=== PATIENT | female | born 1955 | race Caucasian/White ===

== ENCOUNTER → 2020-06-26 | Outpatient (CLI) | payer OTHER ==
[~2020-06-26] MED LIST: ASPIRIN325 PO; ATORVASTATIN CA40 MG PO; EFFIENT10 MG PO; LEVOTHYROXINE0.05 MG PO; LISINOPRIL-HCT1 EAC2 PO; LISINOPRIL20 MG PO; LOPRESSOR100 M1 PO; METFORMIN HCL500 MG PO; NICOTINE TRANSD21 M1
== END ==
LOC: SJCVCIMAG 08:26
PROVIDERS: ATTEND Internal Medicine
DX: I35.8 Other nonrheumatic aortic valve disorders (principal); I25.10 Atherosclerotic heart disease of native coronary artery without angina pectoris; E11.9 Type 2 diabetes mellitus without complications; I10 Essential (primary) hypertension; I25.2 Old myocardial infarction; F17.200 Nicotine dependence, unspecified, uncomplicated; Z79.899 Other long term (current) drug therapy

== ENCOUNTER → 2020-12-21 | Outpatient (CLI) | payer OTHER ==
[~2020-12-21] MED LIST changes: +CLOPIDOGREL75 MG PO; +FAMOTIDINE 20 M20 MG PO; +JARDIANCE10 MG PO; +LANTUS SOL100 UNIT/1 SUBQ; +LEVOTHYROXINE125 MCG PO; +LIPITOR 20 MG T20 M1 PO; +NEURONTIN 300M300 M2 PO; +NORVASC5 MG PO; +PROAIR HFA8.5 GM INH; +SPIRIVA RESPIMAT4 GM INH; +VITAMIN D350 MC3 PO
== END ==
LOC: LAB 07:43
PROVIDERS: ATTEND Surgery
DX: Z01.812 Encounter for preprocedural laboratory examination (principal); Z20.822 Contact with and (suspected) exposure to COVID-19

== ENCOUNTER 2020-12-25 06:52 | Day surgery (SDC) | payer OTHER ==
[~2020-12-25] VITALS: Ht 160 cm; Wt 87.1 kg
[2020-12-25 07:31] LABS: HEMATOCRIT 41.1 % (37.0-47.0); HEMOGLOBIN 13.8 gm/dL (12.0-15.0); MCH 29.8 pg (26.0-34.0); MCHC 33.5 g/dL (28.0-37.0); MCV 88.9 fL (80.0-100.0); RBC 4.62 mil/uL (4.20-5.00); RDW 13.3 % (10.5-14.5); WBC 11.4 thou/uL (4.0-11.0)
[2020-12-25 07:40] VITALS: BP 99/66
[2020-12-25 07:43] LABS: CALCIUM 9.7 mg/dL (8.5-10.1); CREATININE 1.6 mg/dL (0.6-1.0); POTASSIUM 3.8 mmol/L (3.5-5.1)
[2020-12-25 07:49] LABS: ALBUMIN 3.7 g/dL (3.4-5.0); TOTAL BILIRUBIN 0.5 mg/dL (0.2-1.0); TOTAL PROTEIN 8.4 g/dL (6.4-8.2)
[2020-12-25] MEDS ORDERED: HYDROCODON-ACE1 EAC7 PO (10:24)
[2020-12-25] MEDS ORDERED: COLACE 100 MG100 MG PO (10:24)
[2020-12-25] MEDS ORDERED: MIRALAX17 GM PO (10:25)
--- NOTE | 2020-12-25 12:59 | EKG ---
[address] [place] [address] ELECTROCARDIOGRAM REPORT Name: MIKAYLA PECK ROGER Room #: 150-2 [facility].R.#: [id number] Admission: 12/25/20 Attend Phys: Sumanth Cherry MD Discharge: Date of : 53 Report #: [id number] [facility] Test Date: 2020-12-25 Test Time: 07:59:09 Pat Name: MIKAYLA PECK Department: Room: 150 2 Gender: F Roller: VY : 1955 Requested By: Sumanth Cherry Order Number: [id number] MD: Gerry Romo Measurements Intervals [place] Rate: 75 P: 7 MN: 176 QRS: -19 QRSD: 108 T: 83 QT: 414 QTc: 463 Interpretive Statements Sinus rhythm Low voltage, precordial leads RSR' in V1 or V2, probably normal variant Probable LVH with secondary repol abnrm Compared to ECG 03/27/2016 07:29:31 Electronically Signed On 12-25-2020 12:59:37 PHERESIS NURSE by Gerry Romo [email or web address] <ELECTRONICALLY SIGNED> By: Gerry Romo MD 12/25/20 [id number] Gerry Romo MD /HOSSEIN
--- NOTE | 2020-12-25 15:45 | NUR ---
patient comes to floor from PACU at 1405 with all belongings. admission complete. patient education completed. call light education provided.
--- NOTE | 2020-12-25 15:47 | NUR ---
ASSESSMENT: CM REVIEWED CHART AND SPOKE WITH PATIENT. PT IS ALERT AND ORIENTED X4. PT REPORTS SHE LIVES IN AN APT ALONE. PT REPORTS BEING FULLY INDEPENDENT PRIOR TO ADMISSION BUT STATES SHE HAS A CANE AT HOME IF NEEDED THAT SHE NORMALLY DOES NOT USE. PT REPORT SNO STEPS INTO HER APT. PT REPORTS THAT SHE HAS A BROTHER WHO HELPS ASSIST HER NEEDED AND CAN PICK HER UP ONCE SHE LEAVES. PT REPORT SHE HAS NO HX OF HH OR SNF. PT DOES NOT ANTICIPATE HAVING ANY NEEDS FROM CM PRIOR TO DISCHARGE. PT IS S/P [employer]AVE. CM WILL CONTINUE TO FOLLOW TO ASSIST NEEDED.
[2020-12-25 16:34] VITALS: BP 129/75
--- NOTE | 2020-12-25 18:34 | NUR ---
patient arrives at 1405 from surgery. patient refuses pain medication when offered for post operative pain. family at bedside during visint hours. no complaints of nausea. voids per bathroom. 1 person assist. ambulates well with staff.
[2020-12-25 19:50] VITALS: BP 113/53
--- NOTE | 2020-12-26 00:30 | NUR ---
ASSUMED PT CARE AT 1900.PT C/O PAIN ON HER ABD,MANAGED WITH MED.PT HAS 4 LAP SITES COVERED WITH DDERMABOND.SITE C/D/I.SCD IN PLACE ON HER BLE.PT ON 2L/NC.PT RESTING ON HER BED AT THIS TIME.CALL LIGHT WITHIN REACH.
[2020-12-26 03:50] VITALS: BP 100/49
[2020-12-26 04:28] LABS: HEMATOCRIT 34.8 % (37.0-47.0); MCHC 33.4 g/dL (28.0-37.0); MCV 89.9 fL (80.0-100.0); RBC 3.87 mil/uL (4.20-5.00); RDW 13.9 % (10.5-14.5); WBC 12.1 thou/uL (4.0-11.0)
[2020-12-26 04:34] LABS: HEMOGLOBIN 11.6 gm/dL (12.0-15.0)
[2020-12-26 05:13] LABS: CALCIUM 8.9 mg/dL (8.5-10.1); CREATININE 1.4 mg/dL (0.6-1.0); PHOSPHORUS 4.1 mg/dL (2.5-4.9); POTASSIUM 3.4 mmol/L (3.5-5.1)
[2020-12-26 07:35] VITALS: BP 100/64
[2020-12-26 15:27] VITALS: BP 76/44; BP 90/64
[2020-12-26 16:00] VITALS: BP 96/60
--- NOTE | 2020-12-26 18:30 | NUR ---
PT ASSESSED AT START OF SHIFT. C/O SOME ABD PAINS BUT FELT BETTER AFTER NORCO. TAKING SM AMTS PO THIS AM. PT SEEN BY DR. GARDUNO AND PLANS FOR PT DISCHARGE. APPROX 1530 VS TAKEN AND PT NOTED TO BE VERY LETHARGIC W/ . ACCUCK TAKEN AND WAS 125 FROM 292 AT LUNCHTIME. 17 UNITS HUMALOG GIVEN AT THE TIME AND PT WAS EATING LUNCH. PT NOT GOING HOME AFTER ACCUCHECK SO HIGH AND DR. CASTRO CONSULTED FOR DIABETIC MGMT. ORDERS RECEIVED. IV 500ML BOLUS GIVEN. PT MONITORED CLOSELY AND GIVEN PO FLUIDS AND SOFT FOODS TO STABILIZE FALLING GLUCOSE. DOCTORS KEPT UPDATED. PT DOING BETTER AT PRESENT TIME.
[2020-12-26 20:35] VITALS: BP 109/61
--- NOTE | 2020-12-27 05:04 | NUR ---
PT AMBULATING TO BATHROOM WITH STANDBY ASSIST AND IS TOLERATING FAIR. X STRENGTH TYLENOL PROVIDING PAIN RELIEF. DENIES NAUSEA. RESTING COMFORTABLY. NO NEEDS VOICED. CALL LIGHT WITHIN REACH. FREQUENT OBSERVATION.
[2020-12-27 05:12] LABS: HEMATOCRIT 31.9 % (37.0-47.0); HEMOGLOBIN 10.7 gm/dL (12.0-15.0); MCH 30.2 pg (26.0-34.0); MCHC 33.6 g/dL (28.0-37.0); MCV 90.1 fL (80.0-100.0); RBC 3.54 mil/uL (4.20-5.00); RDW 13.8 % (10.5-14.5); WBC 8.2 thou/uL (4.0-11.0)
[2020-12-27 05:23] LABS: CALCIUM 8.3 mg/dL (8.5-10.1); CREATININE 1.3 mg/dL (0.6-1.0); POTASSIUM 3.3 mmol/L (3.5-5.1)
[2020-12-27 07:45] VITALS: BP 99/60
[2020-12-27 10:21] LABS: URINE BILIRUBIN NEGATIVE (Negative); URINE BLOOD NEGATIVE (Negative); URINE CLARITY CLEAR; URINE COLOR YELLOW; URINE GLUCOSE-RANDOM* 3+ (Negative); URINE KETONES NEGATIVE (Negative); URINE NITRITE-REFLEX NEGATIVE (Negative); URINE PROTEIN (DIPSTICK) NEGATIVE (Negative); URINE SPECIFIC GRAVITY 1.015 (1.005-1.035); URINE UROBILINOGEN 0.2 E.U./dl (0.2-1.0)
[2020-12-27 10:27] LABS: URINE LEUKOCYTES-REFLEX 1+ (Negative)
[2020-12-27 12:48] LABS: SQUAMOUS >10 Many /LPF (0-3)
[2020-12-27] MEDS ORDERED: LANTUS SUBQ (12:48)
[2020-12-27] MEDS ORDERED: GLIPIZIDE5 MG PO (12:48)
[2020-12-27 12:49] LABS: CASTS None Seen /LPF (None Seen); URINE RBC 0-2 Rare /HPF (0-2); URINE WBC-REFLEX 6-15 Few /HPF (0-5)
[2020-12-27 12:50] LABS: BACTERIA-REFLEX 1-9 Few /HPF (None Seen); CRYSTALS None Seen /LPF (None Seen)
[2020-12-27 13:06] VITALS: BP 99/60
--- NOTE | 2020-12-27 14:14 | NUR ---
PT CARE ASSUMED AT 0700. A&Ox4. ACHS WITH HISTORY OF NONCOMPLIANCE. UA COLLECTED. NO N/V. LAPSITES x4 DRY&INTACT. iV PATENT WITH NO REDNESS OR EDEMA, FLUIDS INFUSING. DISCHARGE INSTRUCTIONS GIVEN. WITH NO FURTHER QUESTIONS. INDEPENDENTLY UP IN THE ROOM. CALL LIGHT IN REACH.
--- NOTE | 2020-12-28 15:07 | PATH ---
[facility] [address] [place] [address] PATHOLOGY RPT PROCEDURE Name: BELL WILLETT Room #: DEP [facility] M.R.#: [id number] Admission: 12/25/20 Date of : 53 Discharge: 12/27/20 Report #: [id number] Path Case #: [id number] [facility] Accession Number: [id number] . 01 Material submitted: . gallbladder - GALLBLADDER . 01 Clinical history: . ABDOMINAL PAIN, CHOLELITHIASIS . 02 Diagnosis: Gallbladder "gallbladder, cholecystectomy": - Chronic cholecystitis with cholelithiasis. (LATONYA:ra; 12/28/2020) MBR 12/28/2020 1322 Local . 02 Electronically signed: . Kenneth Doe MD, Pathologist NPI- [id number] . 01 Gross description: . Received in formalin labeled "Willett, Ebll, gallbladder" is intact cholecystectomy specimen measuring 8.9 x 3.4 x 3.4 cm. The serosa is smooth, yellow-green and glistening with a roughened hepatic bed. The specimen is opened to reveal velvety, green-brown mucosa without polyps or masses. The average wall thickness is 0.2 cm. There are multiple irregular green-black calculi measuring in aggregate 4.3 x 2.1 x 0.9 cm. There is a possible lymph node measuring 0.4 x 0.3 x 0.3 cm. Senior Instructional Designer sections of the fundus, body, possible lymph node and the cystic duct margin are submitted in A1. ([facility]; 12/27/2020) GZA/GZA 12/28/2020 1321 Local . 02 Pathologist provided ICD-10: K80.10 . 02 CPT . 963893 Specimen Comment: Report sent to / Performed at: [facility] [address] [place] [address] [address], [place], [place] [id number] MD Kenneth Doe MD Phone: [phone] Performed at: [address] [id number] MD Tanika Birmingham MD Phone: [phone]
== END 2020-12-27 14:20 | disposition home or self-care (01) ==
LOC: OR 06:52 → TBA 06:52 → OR 09:50 → 4S 14:16 → OR 12-27 14:20
PROVIDERS: Internal Medicine; ATTEND Surgery
DX: K80.10 Calculus of gallbladder with chronic cholecystitis without obstruction (principal); K85.90 Acute pancreatitis without necrosis or infection, unspecified; R10.9 Unspecified abdominal pain; I10 Essential (primary) hypertension; E11.9 Type 2 diabetes mellitus without complications; E78.5 Hyperlipidemia, unspecified; J43.9 Emphysema, unspecified; I25.2 Old myocardial infarction; F17.210 Nicotine dependence, cigarettes, uncomplicated; Z98.890 Other specified postprocedural states; Z79.899 Other long term (current) drug therapy; Z79.4 Long term (current) use of insulin; Z86.73 Personal history of transient ischemic attack (TIA), and cerebral infarction without residual deficits; Z98.41 Cataract extraction status, right eye; Z98.42 Cataract extraction status, left eye; Z98.51 Tubal ligation status; Z88.0 Allergy status to penicillin
CPT/HCPCS: 10102; 50010; 50101; 50411; 50555; 50558; 52265; 52266; 53307; 53310; 53312; 54022; 54118; 55245; 56462; 56525; 56526; 56674; 58574; 62110; 62900; 70005

== ENCOUNTER → 2020-12-30 | Outpatient (CLI) | payer OTHER ==
[~2020-12-30] MED LIST changes: +COLACE 100 MG100 MG PO; +GLIPIZIDE5 MG PO; +HYDROCODON-ACE1 EAC7 PO; +LANTUS SUBQ; +MIRALAX17 GM PO
== END ==
LOC: SJCVC 11:53
PROVIDERS: ATTEND Internal Medicine
DX: R94.31 Abnormal electrocardiogram [ECG] [EKG] (principal); I25.10 Atherosclerotic heart disease of native coronary artery without angina pectoris; I10 Essential (primary) hypertension; E11.9 Type 2 diabetes mellitus without complications; E78.5 Hyperlipidemia, unspecified; E04.9 Nontoxic goiter, unspecified; F17.210 Nicotine dependence, cigarettes, uncomplicated; Z79.899 Other long term (current) drug therapy; Z79.82 Long term (current) use of aspirin; Z88.0 Allergy status to penicillin